=== PATIENT | female | born 1965 | race Caucasian/White ===

== ENCOUNTER 2018-07-19 17:44 | Emergency (ER) | payer OTHER ==
[2018-07-19] MEDS ORDERED: BUSP15TA69 PO (18:13)
[2018-07-19] MEDS ORDERED: FEXO1TAB63 PO (18:13)
[2018-07-19] MEDS ORDERED: ESTR-33 PO (18:13)
[2018-07-19] MEDS ORDERED: METF-450 PO (18:13)
--- NOTE | 2018-07-19 18:14 | ER Report ---
History and Physical Time Seen By MD: 18:12 Hx. of Stated Complaint: pt has extensive bowel hx, recently, had some n/vb and abd pain, was sent by her [facility] in [place] for a CT. Found to have inflammation and possible "early " obstruction. HPI/ROS CHIEF COMPLAINT: Abdominal pain HISTORY OF PRESENT ILLNESS: 53-year-old female with a history of numerous bowel surgeries, status post hysterectomy, status post appendectomy. 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 She underwent many surgeries as an . She subsequently underwent a total abdominal hysterectomy several years ago that lasted many hours since they had to take down a lot of adhesions. Patient now has been having some vague symptoms for 2-3 weeks. She gets severe abdominal cramping last night and presented to the clinic in [place]. She was sent in for evaluation with a CT of the abdomen and pelvis. The CT report shows gross enteritis of some terminal ileal loops. And possibly early small bowel obstruction. Patient on arrival here to the ER, has only mild abdominal discomfort. She had several episodes of vomiting last night. She notes that she generally tense cord constipation. Her last bowel movement was Wednesday, 2 days ago. REVIEW OF SYSTEMS: Respiratory: No cough, no dyspnea. Cardiovascular: No chest pain, no palpitations. Gastrointestinal: As above Musculoskeletal: No back pain. Allergies: Uncoded Allergies: surgiical glue (Adverse Reaction, Intermediate, 07/19/18) Home Meds Active Scripts Hydrocodone Bit/Acetaminophen (HYDROCODON-ACETAMINOPHEN 5-325) 1 Each Tablet, 1 EACH PO Q4-6H PRN for PAIN, #12 TAKE ONE TABLET BY MOUTH EVERY 4-6 HOURS NEEDED FOR PAIN Prov:NOÉ FRAZIER DO 07/19/18 Ondansetron 4 Mg Odt (ONDANSETRON 4 MG ODT) 4 Mg Tab.rapdis, 4 MG PO Q6H PRN for NAUSEA/VOMITING, #10 TAB Prov:NOÉ FRAZIER DO 07/19/18 Metronidazole (FLAGYL) 500 Mg Tablet, 500 MG PO BID for infection, #14 TAB Prov:NOÉ FRAZIER DO 07/19/18 Ciprofloxacin Hcl 500 Mg Tab (CIPRO 500 MG TAB) 500 Mg Tablet, 500 MG PO BID for infection, #14 Prov:NOÉ FRAZIER 07/19/18 Reported Medications Fexofenadine Hcl/Pseudoephedr (NAVNEET-D 24 HOUR TABLET) 1 Each Tabsr, 1 TAB PO QDAY 07/19/18 Estradiol (ESTRADIOL) 1 Mg Tablet, 1 MG PO 07/19/18 Metformin Hcl (METFORMIN HCL) 500 Mg Tablet, 1 TAB PO BID, TAB 07/19/18 Buspirone Hcl (BUSPIRONE HCL) 15 Mg Tablet, 15 MG PO BID, #10 TAB 07/19/18 Reviewed Nurses Notes: Yes Old Medical Records Reviewed: Yes Hx Substance Use Disorder: No Hx Alcohol Use: Yes (occ) Constitutional Vital Sign - Last 24 Hours 07/19/18 07/19/18 07/19/18 07/19/18 17:51 17:52 18:00 18:14 Temp 97.4 Pulse 67 63 Resp 20 B/P (MAP) 116/81 (93) 116/81 120/86 (97) Pulse Ox 96 93 O2 Delivery Room Air 07/19/18 07/19/18 07/19/18 07/19/18 18:29 18:44 18:59 19:00 Pulse 65 62 65 B/P (MAP) 121/81 (94) Pulse Ox 95 96 94 07/19/18 07/19/18 07/19/18 19:14 19:29 19:30 Pulse 68 64 B/P (MAP) 105/88 (94) Pulse Ox 86 96 Physical Exam Vital signs stable, afebrile General Appearance: The patient is alert, has no immediate need for airway protection and no current signs of toxicity. No acute distress, skin warm, dry, pink Eyes: Pupils equal and round no injection. Respiratory: Chest is non tender, lungs are clear to auscultation. Cardiac: regular rate and rhythm Gastrointestinal: Abdomen is soft, mild distention, mild diffuse tenderness, no masses, bowel sounds normal. Musculoskeletal: Neck: Neck is supple and non tender. Extremities have full range of motion and are non tender. Skin: No rashes or lesions. DIFFERENTIAL DIAGNOSIS: After history and physical exam differential diagnosis was considered for abdominal pain including but not limited to appendicitis, cholecystitis, bowel obstruction, enteritis gastritis and urinary tract infection. Medical Decision Making Data Points Result Diagram: 07/19/18 1834 07/19/18 1834 Laboratory Hematology Test 07/19/18 17:55 07/19/18 18:34 Urine Color Yellow Urine Clarity Clear Urine pH 5.0 pH (4.8-9.5) Urine Specific Downey 1.057 Urine Protein Negative mg/dL (NEGATIVE) Urine Glucose (UA) Negative mg/dL (NEGATIVE) Urine Ketones Negative mg/dL (NEGATIVE) Urine Blood Negative (NEGATIVE) Urine Nitrite Negative (NEGATIVE) Urine Bilirubin Negative (NEGATIVE) Urine Urobilinogen Negative mg/dL (0.2-1.9) Urine Leukocyte Esterase Negative (NEGATIVE) Urine RBC 1 /HPF (0-2/HPF) Urine WBC <1 /HPF (0-5/HPF) Urine Squamous Epithelial Cells Many /LPF (</=FEW) Urine Bacteria Negative /HPF (NONE-FEW) Urine Mucus None /HPF (NONE-FEW) Red Blood Count 4.64 M/uL (4.17-5.56) Mean Corpuscular Volume 91.9 fL (80.0-96.0) Mean Corpuscular Hemoglobin 30.7 pg (26.0-33.0) Mean Corpuscular Hemoglobin Concent 33.4 g/dL (32.0-36.0) Red Cell Distribution Width 14.0 % (11.5-14.5) Mean Platelet Volume 8.9 fL (7.2-11.1) Neutrophils (%) (Auto) 68.4 % (39.4-72.5) Lymphocytes (%) (Auto) 22.3 % (17.6-49.6) Monocytes (%) (Auto) 5.9 % (4.1-12.4) Eosinophils (%) (Auto) 2.7 % (0.4-6.7) Basophils (%) (Auto) 0.7 % (0.3-1.4) Nucleated RBC Relative Count (auto) 0.0 /100WBC Neutrophils # (Auto) 5.4 K/uL (2.0-7.4) Lymphocytes # (Auto) 1.8 K/uL (1.3-3.6) Monocytes # (Auto) 0.5 K/uL (0.3-1.0) Eosinophils # (Auto) 0.2 K/uL (0.0-0.5) Basophils # (Auto) 0.1 K/uL (0.0-0.1) Nucleated RBC Absolute Count (auto) 0.00 K/uL Sodium Level 139 mmol/L (137-145) Potassium Level 4.0 mmol/L (3.5-5.0) Chloride Level 104 mmol/L (98-107) Carbon Dioxide Level 27 mmol/L (22-31) Blood Urea Nitrogen 9 mg/dl (7-18) Creatinine 0.90 mg/dl (0.52-1.04) Glomerular Filtration Rate Calc > 60.0 Random Glucose 83 mg/dl (75-110) Lactate 1.4 mmol/L (0.7-2.1) Calcium Level 9.1 mg/dl (8.4-10.2) Total Bilirubin 0.4 mg/dl (0.2-1.3) Aspartate Amino Transf (AST/SGOT) 26 U/L (0-35) Alanine Aminotransferase (ALT/SGPT) 36 U/L (0-56) Alkaline Phosphatase 79 U/L (0-126) Total Protein 7.6 g/dl (6.3-8.2) Albumin 4.5 g/dl (3.5-5.0) Amylase Level 80 U/L (0-110) Lipase 48 U/L (23-300) Chemistry Test 07/19/18 17:55 07/19/18 18:34 Urine Color Yellow Urine Clarity Clear Urine pH 5.0 pH (4.8-9.5) Urine Specific Downey 1.057 Urine Protein Negative mg/dL (NEGATIVE) Urine Glucose (UA) Negative mg/dL (NEGATIVE) Urine Ketones Negative mg/dL (NEGATIVE) Urine Blood Negative (NEGATIVE) Urine Nitrite Negative (NEGATIVE) Urine Bilirubin Negative (NEGATIVE) Urine Urobilinogen Negative mg/dL (0.2-1.9) Urine Leukocyte Esterase Negative (NEGATIVE) Urine RBC 1 /HPF (0-2/HPF) Urine WBC <1 /HPF (0-5/HPF) Urine Squamous Epithelial Cells Many /LPF (</=FEW) Urine Bacteria Negative /HPF (NONE-FEW) Urine Mucus None /HPF (NONE-FEW) White Blood Count 7.9 k/uL (4.5-11.0) Red Blood Count 4.64 M/uL (4.17-5.56) Hemoglobin 14.2 g/dL (12.0-16.0) Hematocrit 42.6 % (34.0-47.0) Mean Corpuscular Volume 91.9 fL (80.0-96.0) Mean Corpuscular Hemoglobin 30.7 pg (26.0-33.0) Mean Corpuscular Hemoglobin Concent 33.4 g/dL (32.0-36.0) Red Cell Distribution Width 14.0 % (11.5-14.5) Platelet Count 299 K/uL (150-450) Mean Platelet Volume 8.9 fL (7.2-11.1) Neutrophils (%) (Auto) 68.4 % (39.4-72.5) Lymphocytes (%) (Auto) 22.3 % (17.6-49.6) Monocytes (%) (Auto) 5.9 % (4.1-12.4) Eosinophils (%) (Auto) 2.7 % (0.4-6.7) Basophils (%) (Auto) 0.7 % (0.3-1.4) Nucleated RBC Relative Count (auto) 0.0 /100WBC Neutrophils # (Auto) 5.4 K/uL (2.0-7.4) Lymphocytes # (Auto) 1.8 K/uL (1.3-3.6) Monocytes # (Auto) 0.5 K/uL (0.3-1.0) Eosinophils # (Auto) 0.2 K/uL (0.0-0.5) Basophils # (Auto) 0.1 K/uL (0.0-0.1) Nucleated RBC Absolute Count (auto) 0.00 K/uL Glomerular Filtration Rate Calc > 60.0 Lactate 1.4 mmol/L (0.7-2.1) Calcium Level 9.1 mg/dl (8.4-10.2) Total Bilirubin 0.4 mg/dl (0.2-1.3) Aspartate Amino Transf (AST/SGOT) 26 U/L (0-35) Alanine Aminotransferase (ALT/SGPT) 36 U/L (0-56) Alkaline Phosphatase 79 U/L (0-126) Total Protein 7.6 g/dl (6.3-8.2) Albumin 4.5 g/dl (3.5-5.0) Amylase Level 80 U/L (0-110) Lipase 48 U/L (23-300) Urinalysis Test 07/19/18 17:55 Urine Color Yellow Urine Clarity Clear Urine pH 5.0 pH (4.8-9.5) Urine Specific Downey 1.057 Urine Protein Negative mg/dL (NEGATIVE) Urine Glucose (UA) Negative mg/dL (NEGATIVE) Urine Ketones Negative mg/dL (NEGATIVE) Urine Blood Negative (NEGATIVE) Urine Nitrite Negative (NEGATIVE) Urine Bilirubin Negative (NEGATIVE) Urine Urobilinogen Negative mg/dL (0.2-1.9) Urine Leukocyte Esterase Negative (NEGATIVE) Urine RBC 1 /HPF (0-2/HPF) Urine WBC <1 /HPF (0-5/HPF) Urine Squamous Epithelial Cells Many /LPF (</=FEW) Urine Bacteria Negative /HPF (NONE-FEW) Urine Mucus None /HPF (NONE-FEW) EKG/Imaging Imaging Results: CT scan of the abdomen and pelvis without IV contrast was obtained. The results of the study are CT abdomen and pelvis without and with IV contrast Indication: Abdominal and pelvic pain. Comparison: None available. . Technique: Axial CT images were obtained through the abdomen and pelvis prior to and during injection of nonionic iodinated intravenous contrast. Reformatted coronal and sagittal images were also obtained. One of the following dose optimization techniques was utilized in the performance of this exam: Automated exposure control; adjustment of the mA and/or kV according to the patient's size; or use of an iterative reconstruction technique. Specific details can be referenced in the facility's radiology CT exam operational policy. Contrast: 75 ml of Isovue-370 IV contrast. Findings: Lower lung paris: Limited views lower lung field are unremarkable. Liver: No focal parenchymal abnormality of the liver. Biliary: Gallbladder appears unremarkable as well as the intra and extra hepatic biliary system. Pancreas: Normal appearance. Spleen: Normal appearance. Adrenal glands: Unremarkable. Kidneys / retroperitoneum: No evidence of nephrolithiasis or hydronephrosis. No focal abnormality. Bowel / peritoneum / mesenteries: The colon shows no focal normality. The appendix is not visualized. There is abnormal appearance to the mid ileum showing wall thickening, increased enhancement to the wall and mild prominence. There is mild dilatation of couple loops of proximal ileum. The jejunum and duodenum show more normal appearance. Terminal ileum appears more normal in its appearance. The stomach is unremarkable. There is some free fluid seen in the mesentery of the mid ileum without fluid collection, free air or other areas of inflammation. Lymph node assessment: No pathologic adenopathy identified. Pelvic structures: The uterus is not visualized may been surgically removed. The remaining pelvic structures visualized within normal limits. Vessels: No significant atherosclerotic calcifications seen throughout a nonaneurysmal abdominal aorta and branches. Musculoskeletal / Body wall: No acute or aggressive osseous abnormality. IMPRESSION: 1. Abnormal ileum mainly in the mid aspect showing wall thickening and increased enhancement with mild prominence of the proximal ileum. This is suggestive nonspecific enteritis likely infectious or inflammatory and less likely ischemic as the vessels within the abdomen all appear to be well opacified. This may be causing a early obstructive pattern. There is associated mesenteric fluid. No fluid collection or perforation. 2. The remainder of the exam is unremarkable. The study was read by the radiologist. I viewed the images myself on the PACS system. ED Course/Re-evaluation Clinical Indication for ER IV: Hydration, IV Access ED Course Patient was admitted to an examination room. H&P was done. The differential diagnoses was considered. Patient notes abdominal bloating pain and cramps last night with vomiting. She was sent in by her provider from [place] had a CAT scan of her abdomen and pelvis with and without contrast. It shows enteritis. And possibly an early small bowel obstruction. She has a history of multiple abdominal surgeries. Diagnostic evaluation is sent off. Patient's treated with IV fluid hydration, Zofran and Toradol. Her diagnostic studies are unremarkable. Her urine shows an increased specific gravity consistent with IV contrast. I had a prolonged discussion with the patient regarding options of going home or being admitted with a early small bowel obstruction. Patient would prefer to go home. She'll be covered with Cipro and Flagyl for enteritis. She'll be given Zofran and Lortab for symptom management. She is advised a clear liquid diet for 2-3 days. Advance into the brat diet. Patient advised a low threshold return for any worsening Decision to Disposition Date: Jul 19, 2018 Decision to Disposition Time: 19:09 Depart Departure Latest Vital Signs Vital Signs Date Time Temp Pulse Resp B/P (MAP) Pulse Ox O2 Delivery O2 Flow Rate FiO2 07/19/18 19:30 105/88 (94) 07/19/18 19:29 64 96 07/19/18 17:52 97.4 20 Room Air Impression: Primary Impression: Abdominal cramps Additional Impression: Enteritis Condition: Improved Disposition: HOME OR SELF-CARE New Scripts Hydrocodone Bit/Acetaminophen (HYDROCODON-ACETAMINOPHEN 5-325) 1 Each Tablet 1 EACH PO Q4-6H PRN for PAIN, #12 TAKE ONE TABLET BY MOUTH EVERY 4-6 HOURS NEEDED FOR PAIN Prov: NOÉ FRAZIER DO 07/19/18 Ondansetron 4 Mg Odt (ONDANSETRON 4 MG ODT) 4 Mg Tab.rapdis 4 MG PO Q6H PRN for NAUSEA/VOMITING, #10 TAB Prov: NOÉ FRAZIER DO 07/19/18 Metronidazole (FLAGYL) 500 Mg Tablet 500 MG PO BID for infection, #14 TAB Prov: NOÉ FRAZIER DO 07/19/18 Ciprofloxacin Hcl 500 Mg Tab (CIPRO 500 MG TAB) 500 Mg Tablet 500 MG PO BID for infection, #14 Prov: NOÉ FRAZIER DO 07/19/18 Patient Instructions: Enteritis (ED) Additional Instructions: Follow clear liquid diet for 48 hours, then advance to the Maggie diet as tolerated Avoid fatty food, greasy food, vegetables and dairy for at least 3 days Take both antibiotics twice daily until gone Use medication to control your symptoms Return to the ER for any worsening Problem Qualifiers NOÉ FRAZIER DO Jul 19, 2018 18:14
[2018-07-19] MEDS ORDERED: NS(*) 0.9% 1000 ML BAG 1,000 ML IV ONE (18:15)
[2018-07-19 18:41] LABS: PLATELET COUNT, AUTOMATED 299 K/uL (150-450)
[2018-07-19] MEDS ORDERED: ACET/HYDROC 5/325MG TH ER ONLY 2 TAB/BOTTLE PO ONE (19:10)
[2018-07-19] MEDS ORDERED: KETOROLAC 30 MG/ML VIAL IVP ONE (19:10)
[2018-07-19] MEDS ORDERED: ONDANSETRON 4 MG/2 ML VIAL IVP ONE (19:10)
[2018-07-19] MEDS ORDERED: CIPROFLOXACIN 500 MG TAB PO ONE (19:10)
[2018-07-19] MEDS ORDERED: METRONIDAZOLE 500 MG TABLET PO ONE (19:10)
[2018-07-19] MEDS ORDERED: ONDANSETRON 4 MG ODT TH SL ONE (19:10)
[2018-07-19] MEDS ORDERED: LOR5/325 PO (19:13)
[2018-07-19] MEDS ORDERED: METR-1 PO (19:13)
[2018-07-19] MEDS ORDERED: CIPR-344 PO (19:13)
[2018-07-19] MEDS ORDERED: ONDA4TAB9 PO (19:13)
[2018-07-19 19:30] VITALS: BP 105/88
== END 2018-07-19 19:40 | disposition home or self-care (01) ==
LOC: ER 18:16
DX: K52.9 Noninfective gastroenteritis and colitis, unspecified (principal); R10.9 Unspecified abdominal pain
CPT/HCPCS: 36415; 81001; 82150; 83605; 83690; 85025; 96361; 96374; 96375; 99284; J1885; J2405; J7030; S0119; 82040; 82247; 82310; 82374; 82435; 82565; 82947; 84075; 84132; 84155; 84295; 84450; 84460; 84520

== ENCOUNTER → 2018-07-19 | Outpatient (CLI) | payer OTHER ==
[~2018-07-19] MED LIST: BUSP15TA69 PO; CIPR-344 PO; ESTR-33 PO; FEXO1TAB63 PO; IOPAMIDOL 76% 150 ML INFUS BTL 150 ML ONE; LOR5/325 PO; METF-450 PO; METR-1 PO; ONDA4TAB9 PO
--- NOTE | 2018-07-19 16:53 | RADIOLOGY IMAGING REPORT ---
[place] [facility] [place] NAME: Malick Jefferson : 1965 MR: [id number] V: [id number] EXAM DATE: ORDERING PHYSICIAN: TAMARA HERNANDES TECHNOLOGIST: [place] [facility] [place] Malick [place] : 1965 Visit/Account:[id number] Date of Sevice: 07/19/2018 CT abdomen and pelvis without and with IV contrast Indication: Abdominal and pelvic pain. Comparison: None available. . Technique: Axial CT images were obtained through the abdomen and pelvis prior to and during injecti on of nonionic iodinated intravenous contrast. Reformatted coronal and sagittal images were also obta ined. One of the following dose optimization techniques was utilized in the performance of this exam: Autom ated exposure control; adjustment of the mA and/or kV according to the patient's size; or use of an i terative reconstruction technique. Specific details can be referenced in the facility's radiology C T exam operational policy. Contrast: 75 ml of Isovue-370 IV contrast. Findings: Lower lung paris: Limited views lower lung field are unremarkable. Liver: No focal parenchymal abnormality of the liver. Biliary: Gallbladder appears unremarkable as well as the intra and extra hepatic biliary system. Pancreas: Normal appearance. Spleen: Normal appearance. Adrenal glands: Unremarkable. Kidneys / retroperitoneum: No evidence of nephrolithiasis or hydronephrosis. No focal abnormality. Bowel / peritoneum / mesenteries: The colon shows no focal normality. The appendix is not visualized. There is abnormal appearance to the mid ileum showing wall thickening, increased enhancement to the wall and mild prominence. There is mild dilatation of couple loops of proximal ileum. The jejunum and duodenum show more normal appearance. Terminal ileum appears more normal in its appearance. The stom ach is unremarkable. There is some free fluid seen in the mesentery of the mid ileum without fluid collection, free air or other areas of inflammation. Lymph node assessment: No pathologic adenopathy identified. Pelvic structures: The uterus is not visualized may been surgically removed. The remaining pelvic structures visualized within normal limits. Vessels: No significant atherosclerotic calcifications seen throughout a nonaneurysmal abdominal aort a and branches. Musculoskeletal / Body wall: No acute or aggressive osseous abnormality. IMPRESSION: 1. Abnormal ileum mainly in the mid aspect showing wall thickening and increased enhancement with mil d prominence of the proximal ileum. This is suggestive nonspecific enteritis likely infectious or inf lammatory and less likely ischemic as the vessels within the abdomen all appear to be well opacified. This may be causing a early obstructive pattern. There is associated mesenteric fluid. No fluid david ection or perforation. 2. The remainder of the exam is unremarkable. I called report to TAMARA HERNANDES at 07/19/2018 4:47 PM. Report Dictated By: Saeed Bejarano at 07/19/2018 4:33 PM Report E-Signed By: Saeed Bejarano at 07/19/2018 4:50 PM WSN:[id number]
== END ==
LOC: LAB 14:35
PROVIDERS: ATTEND Nurse Practitioner Family
DX: R93.3 Abnormal findings on diagnostic imaging of other parts of digestive tract (principal); R10.9 Unspecified abdominal pain
CPT/HCPCS: 36415; 74178; 82565; Q9967

== ENCOUNTER 2018-08-10 16:52 | Inpatient (IN) | payer OTHER ==
[~2018-08-10] VITALS: Ht 147.3 cm; Wt 75.3 kg
[~2018-08-10 16:52] MED LIST changes: -IOPAMIDOL 76% 150 ML INFUS BTL 150 ML ONE
[2018-08-10] MEDS ORDERED: NS(*) 0.9% 1000 ML BAG 1,000 ML IV ONE (17:00)
[2018-08-10] MEDS ORDERED: fentaNYL CITR 100 MCG/2 ML AMP IVP ONE (17:00)
[2018-08-10] MEDS ORDERED: ONDANSETRON 4 MG/2 ML VIAL IVP ONE (17:00)
--- NOTE | 2018-08-10 17:10 | ER Report ---
History and Physical Time Seen By MD: 17:10 HPI/ROS CHIEF COMPLAINT: Abdominal pain HISTORY OF PRESENT ILLNESS: 53-year-old female patient presents to emergency room with complaint of abdominal pain. Patient states the pain started out of the blue at 12:30 this afternoon. She states that she has not been able to eat anything since then. She states she was not very hungry last night and didn't eat. She states she does live by herself and typically does not cook but one meal a day. She states that today she had a coffee and a burrito from a gas station. She states that she felt fine until 12:30. She states she had not vomited until she started traveling to [place]. She states that she vomited in route and then vomited once when she got here. She states that her last bowel movement was on Wednesday. Patient does have a history of abdominal surgery with a hysterectomy and mesh placement. Patient was seen here approximately 3 weeks ago, at that time had a CT scan done which showed inflammation of the small intestine. She states that at that time they felt that it was possibly a small bowel obstruction but was given the option to try oral medication at home. She did that and felt that she is not able to keep anything down. She ended going to the hospital in [place] when she was there visiting family. At that time she was admitted for kidney failure secondary to dehydration. They rehydrated her and she felt significant better. She states she's been discharged for approximately one week. REVIEW OF SYSTEMS: Respiratory: No cough, no dyspnea. Cardiovascular: No chest pain, no palpitations. Gastrointestinal: As noted above Musculoskeletal: No back pain. Allergies: Uncoded Allergies: surgiical glue (Adverse Reaction, Intermediate, 07/19/18) Home Meds Active Scripts Hydrocodone Bit/Acetaminophen (HYDROCODON-ACETAMINOPHEN 5-325) 1 Each Tablet, 1 EACH PO Q4-6H PRN for PAIN, #12 TAKE ONE TABLET BY MOUTH EVERY 4-6 HOURS NEEDED FOR PAIN Prov:NOÉ FRAZIER DO 07/19/18 Ondansetron 4 Mg Odt (ONDANSETRON 4 MG ODT) 4 Mg Tab.rapdis, 4 MG PO Q6H PRN for NAUSEA/VOMITING, #10 TAB Prov:NOÉ FRAZIER DO 07/19/18 Metronidazole (FLAGYL) 500 Mg Tablet, 500 MG PO BID for infection, #14 TAB Prov:NOÉ FRAZIER DO 07/19/18 Ciprofloxacin Hcl 500 Mg Tab (CIPRO 500 MG TAB) 500 Mg Tablet, 500 MG PO BID for infection, #14 Prov:NOÉ FRAZIER DO 07/19/18 Reported Medications Fexofenadine Hcl/Pseudoephedr (NAVNETE-D 24 HOUR TABLET) 1 Each Tabsr, 1 TAB PO QDAY 07/19/18 Estradiol (ESTRADIOL) 1 Mg Tablet, 1 MG PO 07/19/18 Metformin Hcl (METFORMIN HCL) 500 Mg Tablet, 1 TAB PO BID, TAB 07/19/18 Buspirone Hcl (BUSPIRONE HCL) 15 Mg Tablet, 15 MG PO BID, #10 TAB 07/19/18 Past Medical/Surgical History Patient states that she has a past medical history of GI issues, occasional alcohol use. Patient has a surgical history of appendectomy, hysterectomy and mesh placement. Reviewed Nurses Notes: Yes Hx Substance Use Disorder: No Hx Alcohol Use: Yes (occ) Constitutional Vital Sign - Last 24 Hours 08/10/18 08/10/18 08/10/18 08/10/18 17:11 17:12 17:22 17:52 Pulse 85 91 68 Resp 20 B/P (MAP) 126/96 (106) 126/96 Pulse Ox 94 90 97 O2 Delivery Room Air 08/10/18 08/10/18 08/10/18 08/10/18 17:57 18:12 18:43 18:57 Pulse 74 76 65 B/P (MAP) 118/72 (87) Pulse Ox 97 99 99 08/10/18 08/10/18 19:12 19:27 Pulse 83 79 Pulse Ox 99 94 Physical Exam General Appearance: The patient is alert, has no immediate need for airway protection and no current signs of toxicity. Respiratory: Chest is non tender, lungs are clear to auscultation. Cardiac: regular rate and rhythm Gastrointestinal: Abdomen is soft and diffusely tender, no masses, bowel sounds are hypoactive. Musculoskeletal: Neck: Neck is supple and non tender. Extremities have full range of motion and are non tender. Skin: No rashes or lesions. DIFFERENTIAL DIAGNOSIS: After history and physical exam differential diagnosis was considered for ischemic bowel, perforated bowel, small bowel obstruction. Medical Decision Making Data Points Result Diagram: 08/10/18 1726 08/10/18 4654 Laboratory Hematology Test 08/10/18 17:26 08/10/18 18:42 Red Blood Count 4.61 M/uL (4.17-5.56) Mean Corpuscular Volume 91.8 fL (80.0-96.0) Mean Corpuscular Hemoglobin 30.9 pg (26.0-33.0) Mean Corpuscular Hemoglobin Concent 33.7 g/dL (32.0-36.0) Red Cell Distribution Width 14.1 % (11.5-14.5) Mean Platelet Volume 8.9 fL (7.2-11.1) Neutrophils (%) (Auto) 80.0 % (39.4-72.5) Lymphocytes (%) (Auto) 11.0 % (17.6-49.6) Monocytes (%) (Auto) 6.2 % (4.1-12.4) Eosinophils (%) (Auto) 2.3 % (0.4-6.7) Basophils (%) (Auto) 0.5 % (0.3-1.4) Nucleated RBC Relative Count (auto) 0.0 /100WBC Neutrophils # (Auto) 10.4 K/uL (2.0-7.4) Lymphocytes # (Auto) 1.4 K/uL (1.3-3.6) Monocytes # (Auto) 0.8 K/uL (0.3-1.0) Eosinophils # (Auto) 0.3 K/uL (0.0-0.5) Basophils # (Auto) 0.1 K/uL (0.0-0.1) Nucleated RBC Absolute Count (auto) 0.00 K/uL Erythrocyte Sedimentation Rate 28 mm/HOUR (0-30) Sodium Level 139 mmol/L (137-145) Potassium Level 4.0 mmol/L (3.5-5.0) Chloride Level 103 mmol/L (98-107) Carbon Dioxide Level 24 mmol/L (22-31) Blood Urea Nitrogen 17 mg/dl (7-18) Creatinine 0.80 mg/dl (0.52-1.04) Glomerular Filtration Rate Calc > 60.0 Random Glucose 113 mg/dl (75-110) Calcium Level 10.0 mg/dl (8.4-10.2) Total Bilirubin 0.2 mg/dl (0.2-1.3) Aspartate Amino Transf (AST/SGOT) 37 U/L (0-35) Alanine Aminotransferase (ALT/SGPT) 34 U/L (0-56) Alkaline Phosphatase 90 U/L (0-126) C-Reactive Protein 0.6 mg/dl (<1.0) Total Protein 8.4 g/dl (6.3-8.2) Albumin 4.9 g/dl (3.5-5.0) Amylase Level 85 U/L (0-110) Lipase 56 U/L (23-300) Urine Color Yellow Urine Clarity Clear Urine pH 5.0 pH (4.8-9.5) Urine Specific Nemo 1.028 Urine Protein Negative mg/dL (NEGATIVE) Urine Glucose (UA) Negative mg/dL (NEGATIVE) Urine Ketones Negative mg/dL (NEGATIVE) Urine Blood Negative (NEGATIVE) Urine Nitrite Negative (NEGATIVE) Urine Bilirubin Negative (NEGATIVE) Urine Urobilinogen Negative mg/dL (0.2-1.9) Urine Leukocyte Esterase Negative (NEGATIVE) Urine RBC 1 /HPF (0-2/HPF) Urine WBC 1 /HPF (0-5/HPF) Urine Squamous Epithelial Cells Few /LPF (</=FEW) Urine Bacteria Negative /HPF (NONE-FEW) Urine Mucus None /HPF (NONE-FEW) Chemistry Test 08/10/18 17:26 08/10/18 18:42 White Blood Count 13.0 k/uL (4.5-11.0) Red Blood Count 4.61 M/uL (4.17-5.56) Hemoglobin 14.2 g/dL (12.0-16.0) Hematocrit 42.3 % (34.0-47.0) Mean Corpuscular Volume 91.8 fL (80.0-96.0) Mean Corpuscular Hemoglobin 30.9 pg (26.0-33.0) Mean Corpuscular Hemoglobin Concent 33.7 g/dL (32.0-36.0) Red Cell Distribution Width 14.1 % (11.5-14.5) Platelet Count 361 K/uL (150-450) Mean Platelet Volume 8.9 fL (7.2-11.1) Neutrophils (%) (Auto) 80.0 % (39.4-72.5) Lymphocytes (%) (Auto) 11.0 % (17.6-49.6) Monocytes (%) (Auto) 6.2 % (4.1-12.4) Eosinophils (%) (Auto) 2.3 % (0.4-6.7) Basophils (%) (Auto) 0.5 % (0.3-1.4) Nucleated RBC Relative Count (auto) 0.0 /100WBC Neutrophils # (Auto) 10.4 K/uL (2.0-7.4) Lymphocytes # (Auto) 1.4 K/uL (1.3-3.6) Monocytes # (Auto) 0.8 K/uL (0.3-1.0) Eosinophils # (Auto) 0.3 K/uL (0.0-0.5) Basophils # (Auto) 0.1 K/uL (0.0-0.1) Nucleated RBC Absolute Count (auto) 0.00 K/uL Erythrocyte Sedimentation Rate 28 mm/HOUR (0-30) Glomerular Filtration Rate Calc > 60.0 Calcium Level 10.0 mg/dl (8.4-10.2) Total Bilirubin 0.2 mg/dl (0.2-1.3) Aspartate Amino Transf (AST/SGOT) 37 U/L (0-35) Alanine Aminotransferase (ALT/SGPT) 34 U/L (0-56) Alkaline Phosphatase 90 U/L (0-126) C-Reactive Protein 0.6 mg/dl (<1.0) Total Protein 8.4 g/dl (6.3-8.2) Albumin 4.9 g/dl (3.5-5.0) Amylase Level 85 U/L (0-110) Lipase 56 U/L (23-300) Urine Color Yellow Urine Clarity Clear Urine pH 5.0 pH (4.8-9.5) Urine Specific Nemo 1.028 Urine Protein Negative mg/dL (NEGATIVE) Urine Glucose (UA) Negative mg/dL (NEGATIVE) Urine Ketones Negative mg/dL (NEGATIVE) Urine Blood Negative (NEGATIVE) Urine Nitrite Negative (NEGATIVE) Urine Bilirubin Negative (NEGATIVE) Urine Urobilinogen Negative mg/dL (0.2-1.9) Urine Leukocyte Esterase Negative (NEGATIVE) Urine RBC 1 /HPF (0-2/HPF) Urine WBC 1 /HPF (0-5/HPF) Urine Squamous Epithelial Cells Few /LPF (</=FEW) Urine Bacteria Negative /HPF (NONE-FEW) Urine Mucus None /HPF (NONE-FEW) Urinalysis Test 08/10/18 18:42 Urine Color Yellow Urine Clarity Clear Urine pH 5.0 pH (4.8-9.5) Urine Specific Nemo 1.028 Urine Protein Negative mg/dL (NEGATIVE) Urine Glucose (UA) Negative mg/dL (NEGATIVE) Urine Ketones Negative mg/dL (NEGATIVE) Urine Blood Negative (NEGATIVE) Urine Nitrite Negative (NEGATIVE) Urine Bilirubin Negative (NEGATIVE) Urine Urobilinogen Negative mg/dL (0.2-1.9) Urine Leukocyte Esterase Negative (NEGATIVE) Urine RBC 1 /HPF (0-2/HPF) Urine WBC 1 /HPF (0-5/HPF) Urine Squamous Epithelial Cells Few /LPF (</=FEW) Urine Bacteria Negative /HPF (NONE-FEW) Urine Mucus None /HPF (NONE-FEW) EKG/Imaging Imaging ADDENDUM #1 ADDENDUM: These findings of possible small bowel obstruction were discussed with CHARLETTE GIMENEZ at 08/10/2018 7:06 PM. Report Dictated By: Vince Wheeler MD at 08/10/2018 7:05 PM Report E-Signed By: Vince Wheeler MD at 08/10/2018 7:06 PM ORIGINAL REPORT EXAMINATION: CT abdomen with IV contrast CT pelvis with IV contrast HISTORY: Abdominal pain. COMPARISON: 07/19/2018. TECHNIQUE: Axial images were taken through the abdomen and pelvis with intravenous contrast. Sagittal and coronal reformatted images are also submitted. CONTRAST: 75 mL of IV Isovue-370 One of the following dose optimization techniques was utilized in the performance of this exam: Automated exposure control; adjustment of the mA and/or kV according to the patient's size; or use of an iterative reconstruction technique. Specific details can be referenced in the facility's radiology CT exam operational policy. FINDINGS: Liver/biliary: Negative. Pancreas: Negative. Spleen: Negative. Adrenal glands: Negative. Kidneys: Subcentimeter hypoattenuating focus in the right kidney, probably a cyst. Pelvic structures: Status post hysterectomy. Bowel: There is dilation of the mid small bowel with segments focally dilated up to 4.2 cm and 5.1 cm. The distal small bowel and proximal small bowel are nondilated. No obvious focal bowel wall thickening. The appendix is not identified. There are no pericecal inflammatory changes. Peritoneum/retroperitoneum/mesenteries: No intraperitoneal free air or free fluid. Vessels: Negative. Musculoskeletal/body wall: Mild multilevel disc degenerative changes in the lumbar spine. Lymph node assessment: Negative. Lower chest: Negative. IMPRESSION: Dilated segments of the mid small bowel. This is suspicious for a low-grade partial small bowel obstruction. Ileus would also be a possibility with other etiologies not excluded. Report Dictated By: Vince Wheeler MD at 08/10/2018 6:46 PM Report E-Signed By: Vince Wheeler MD at 08/10/2018 7:01 PM ED Course/Re-evaluation ED Course Patient was admitted to an exam room, history and physical were obtained. Differ ential diagnoses were considered. On examination lungs are clear, heart is regular, abdomen is soft and diffusely tender. A CBC, CMP, amylase, lipase, CRP, ESR were done. Lab results were unremarkable except the patient did have an elevated white count 13,000 with a left shift. Creatinine was 0.8 and BUN was 17. CT scan of the abdomen and pelvis was done which showed dilation of the small bowel starting in the mid small intestine. Hepatic to be consistent with a small bowel obstruction, ileus or partial obstruction. I did discuss with the radiologist that I felt that he'll patient had significant amount of stuff in the stomach with some being quite dilated that this appeared to me to be more of a small bowel obstruction. I discussed the case with Dr. Samuel, general surgeon, who agreed to accept the patient for admission with diagnosis small bowel obstruction and recommended a NG tube placement. The NG tube was placed and patient had significant improvement in her pain. I discussed the plan with the patient and her daughter and they verbalized understanding and agreement with plan. Decision to Disposition Date: August 10, 2018 Decision to Disposition Time: 19:34 Depart Departure Latest Vital Signs Vital Signs Date Time Temp Pulse Resp B/P (MAP) Pulse Ox O2 Delivery O2 Flow Rate FiO2 08/10/18 19:27 79 94 08/10/18 18:43 118/72 (87) 08/10/18 17:12 20 Room Air Impression: Primary Impression: SBO (small bowel obstruction) Condition: Condition Unchanged Disposition: Admitted from ER CHARLETTE GIMENEZ August 10, 2018 17:10
[2018-08-10] MEDS ORDERED: HYDROMORPHONE HCL 1 MG/ML SYRINGE IVP ONE (17:25)
[2018-08-10 17:41] LABS: PLATELET COUNT, AUTOMATED 361 K/uL (150-450)
[2018-08-10] MEDS ORDERED: IOPAMIDOL 76% 150 ML INFUS BTL 150 ML ONE (18:18)
--- NOTE | 2018-08-10 19:05 | RADIOLOGY IMAGING REPORT ---
[place] [facility] [place] NAME: Malick Jefferson : 1965 MR: [id number] V: [id number] EXAM DATE: ORDERING PHYSICIAN: CHARLETTE GIMENEZ TECHNOLOGIST: Location: [facility] [place] Patient: Malick Jefferson : 1965 Visit/Account:[id number] Date of Sevice: 08/10/2018 ADDENDUM #1 ADDENDUM: These findings of possible small bowel obstruction were discussed with CHARLETTE GIMENEZ at 08/10/2018 7:06 P M. Report Dictated By: Vince Wheeler MD at 08/10/2018 7:05 PM Report E-Signed By: Vince Wheeler MD at 08/10/2018 7:06 PM ORIGINAL REPORT EXAMINATION: CT abdomen with IV contrast CT pelvis with IV contrast HISTORY: Abdominal pain. COMPARISON: 07/19/2018. TECHNIQUE: Axial images were taken through the abdomen and pelvis with intravenous contrast. Sagitt al and coronal reformatted images are also submitted. CONTRAST: 75 mL of IV Isovue-370 One of the following dose optimization techniques was utilized in the performance of this exam: Autom ated exposure control; adjustment of the mA and/or kV according to the patient's size; or use of an i terative reconstruction technique. Specific details can be referenced in the facility's radiology C T exam operational policy. FINDINGS: Liver/biliary: Negative. Pancreas: Negative. Spleen: Negative. Adrenal glands: Negative. Kidneys: Subcentimeter hypoattenuating focus in the right kidney, probably a cyst. Pelvic structures: Status post hysterectomy. Bowel: There is dilation of the mid small bowel with segments focally dilated up to 4.2 cm and 5.1 cm . The distal small bowel and proximal small bowel are nondilated. No obvious focal bowel wall thicken ing. The appendix is not identified. There are no pericecal inflammatory changes. Peritoneum/retroperitoneum/mesenteries: No intraperitoneal free air or free fluid. Vessels: Negative. Musculoskeletal/body wall: Mild multilevel disc degenerative changes in the lumbar spine. Lymph node assessment: Negative. Lower chest: Negative. IMPRESSION: Dilated segments of the mid small bowel. This is suspicious for a low-grade partial small bowel obstr uction. Ileus would also be a possibility with other etiologies not excluded. Report Dictated By: Vince Wheeler MD at 08/10/2018 6:46 PM Report E-Signed By: Vince Wheeler MD at 08/10/2018 7:01 PM WSN:[id number]
[2018-08-10] MEDS ORDERED: HYDROmorphone HCL 2 MG/ML SDV IVP PRN (19:15)
[2018-08-10] MEDS ORDERED: FLUSH 10 ML SYR IVP PRN (19:15)
[2018-08-10] MEDS ORDERED: ONDANSETRON 4 MG/2 ML VIAL IVP PRN (19:15)
[2018-08-10] MEDS ORDERED: NALOXONE HCL 0.4 MG/ML VIAL IVP PRN (19:15)
[2018-08-10] MEDS ORDERED: LIDOCAINE 2% VISC SLN 15ML UDC MM ONE (19:25)
[2018-08-10 20:12] VITALS: BP 127/89
[2018-08-10] MEDS: NS(*) 0.9% 1000 ML BAG 1,000 ML IV PRN (20:53)
--- NOTE | 2018-08-10 21:00 | RADIOLOGY IMAGING REPORT ---
FACILITY: [facility] - [place] PATIENT NAME: Malick Jefferson : 1965 MR: [id number] V: [id number] EXAM DATE: ORDERING PHYSICIAN: INES GOMEZ TECHNOLOGIST: Location: [facility] - [place] Patient: Malick Jefferson : 1965 Visit/Account:[id number] Date of Sevice: 08/10/2018 INDICATION: Evaluate NG tube position. DATE: 08/10/2018 8:54 PM. TECHNIQUE: CHEST SINGLE AP, KUB SINGLE VIEW ABDOMEN COMPARISON: CT abdomen and pelvis of the same day FINDINGS: The lungs are clear. The esophagogastric tube tip is in the downstream esophagus near the GE junction . Moderate volume of stool in the right colon. A few small bowel loops in the left hemiabdomen are mi ldly prominent. There is contrast in the bladder related to recent CT as well as in the renal calyces and proximal collecting systems. IMPRESSION: 1. The tube tip is near the GE junction. Report Dictated By: Jeremy Jensen MD at 08/10/2018 8:54 PM Report E-Signed By: Jeremy Jensen MD at 08/10/2018 8:57 PM WSN:[id number]
--- NOTE | 2018-08-10 21:01 | RADIOLOGY IMAGING REPORT ---
FACILITY: [facility] - [place] PATIENT NAME: Malick Jefferson : 1965 MR: [id number] V: [id number] EXAM DATE: ORDERING PHYSICIAN: INES GOMEZ TECHNOLOGIST: Location: [facility] [place] Patient: Malick Jefferson : 1965 Visit/Account:[id number] Date of Sevice: 08/10/2018 INDICATION: Evaluate NG tube position. DATE: 08/10/2018 8:54 PM. TECHNIQUE: CHEST SINGLE AP, KUB SINGLE VIEW ABDOMEN COMPARISON: CT abdomen and pelvis of the same day FINDINGS: The lungs are clear. The esophagogastric tube tip is in the downstream esophagus near the GE junction . Moderate volume of stool in the right colon. A few small bowel loops in the left hemiabdomen are mi ldly prominent. There is contrast in the bladder related to recent CT as well as in the renal calyces and proximal collecting systems. IMPRESSION: 1. The tube tip is near the GE junction. Report Dictated By: Jeremy Jensen MD at 08/10/2018 8:54 PM Report E-Signed By: Jeremy Jensen MD at 08/10/2018 8:57 PM WSN:[id number]
[2018-08-10] MEDS: ACETAMINOPHEN(*)1000 MG/100 ML 100 ML IVPB PRN (21:54)
[2018-08-10 23:01] VITALS: BP 117/79
[2018-08-11 02:59] VITALS: BP 129/93
[2018-08-11 05:53] LABS: PLATELET COUNT, AUTOMATED 271 K/uL (150-450)
[2018-08-11] MEDS: NS(*) 0.9% 1000 ML BAG 1,000 ML IV PRN (06:11)
--- NOTE | 2018-08-11 06:30 | RADIOLOGY IMAGING REPORT ---
FACILITY: [facility] PATIENT NAME: Malick Jefferson : 1965 MR: [id number] V: [id number] EXAM DATE: ORDERING PHYSICIAN: INES GOMEZ TECHNOLOGIST: Location: [facility] Patient: Malick Jefferson : 1965 Visit/Account:[id number] Date of Sevice: 08/11/2018 Abdomen: Indication: Possible obstruction. Technique: A single supine view was obtained. Comparison: 08/10/2018 Findings: The intestinal gas pattern is unremarkable. There is no evidence of obstruction or focal di latation. There is residual contrast in the bladder lumen, from the recent CT scan. No suspicious domonique cifications are identified. The skeletal structures appear unremarkable. IMPRESSION: No evidence of obstruction or focal dilatation. Report Dictated By: Leopoldo Dover MD at 08/11/2018 6:24 AM Report E-Signed By: Leopoldo Dover MD at 08/11/2018 6:26 AM WSN:[id number]
[2018-08-11 07:10] VITALS: BP 113/77
--- NOTE | 2018-08-11 07:16 | Gen Surgery History & Physical ---
History of Present Illness Chief Complaint Abdominal pain with N/V History of Present Illness 53yo female presents with abdominal pain with N/V. 1st occurred 3 weeks ago and she was seen in our ER where CT was performed and revealed enteritis with possible early SBO. Admission was recommended but she elected to go home and then, while visiting family in [place] a few days later she became very dehydrated and was admitted to their hospital for a couple of days and felt better after rehydration and was discharged. She was doing well until yesterday when she began having increased pain and nausea so she came in to our ER where CT was repeated and was c/w possible early SBO but no signs of enteritis at this time. She has an extensive abdominal surgical history including gastroschisis repair as , appy at 6yo, hysterectomy, and ventral hernia repair. She has been told to never have abdominal surgery if possible due to the extent of adhesions and difficulty of previous surgeries. History Problems: (1) Gastroschisis Status: Resolved (2) Hx of appendectomy Status: Chronic (3) History of hysterectomy for benign disease Status: Chronic (4) History of incisional hernia repair Status: Chronic Home Meds Active Scripts Hydrocodone Bit/Acetaminophen (HYDROCODON-ACETAMINOPHEN 5-325) 1 Each Tablet, 1 EACH PO Q4-6H PRN for PAIN, #12 TAKE ONE TABLET BY MOUTH EVERY 4-6 HOURS NEEDED FOR PAIN Prov:NOÉ FRAZIER DO 07/19/18 Ondansetron 4 Mg Odt (ONDANSETRON 4 MG ODT) 4 Mg Tab.rapdis, 4 MG PO Q6H PRN for NAUSEA/VOMITING, #10 TAB Prov:NOÉ FRAZIER DO 07/19/18 Metronidazole (FLAGYL) 500 Mg Tablet, 500 MG PO BID for infection, #14 TAB Prov:NOÉ FRAZIER DO 07/19/18 Ciprofloxacin Hcl 500 Mg Tab (CIPRO 500 MG TAB) 500 Mg Tablet, 500 MG PO BID for infection, #14 Prov:NOÉ FRAZIER DO 07/19/18 Reported Medications Fexofenadine Hcl/Pseudoephedr (NAVNEET-D 24 HOUR TABLET) 1 Each Tabsr, 1 TAB PO QDAY 07/19/18 Estradiol (ESTRADIOL) 1 Mg Tablet, 1 MG PO 07/19/18 Metformin Hcl (METFORMIN HCL) 500 Mg Tablet, 1 TAB PO BID, TAB 07/19/18 Buspirone Hcl (BUSPIRONE HCL) 15 Mg Tablet, 15 MG PO BID, #10 TAB 07/19/18 Allergies: Uncoded Allergies: surgiical glue (Adverse Reaction, Intermediate, 07/19/18) Patient History: FH: diabetes mellitus FATHER FH: hypertension FATHER Liver failure MOTHER Review of Systems All Systems Reviewed/Normal: Yes, Except as Noted Gastrointestinal: Nausea, Vomiting, Abdominal Pain Exam General Appearance: Alert, Awake, No Acute Distress, Afebrile Neuro: No Gross deficits Eyes: PERRLA GI: Other (Soft, diffuse TTP, no peritoneal signs, several well healed surgical scars.) Extremities: Warm, Perfused Psych: Alert & Oriented X3, Appropriate Mood & Affect Medical Decision Making Data Points Result Diagram: 08/11/1852108/11/18521 Assessment and Plan Problems: (1) SBO (small bowel obstruction) Status: Acute Assessment & Plan: 08/11/18: Patient has been admitted to start conservative management with NG tube decompression, bowel rest, IV fluids. She feels better this morning. Passed flatus earlier this morning. No appetite. Not much out of NG tube. Will get water-soluble SBFT today. Don't think surgical exploration will be necessary as CT findings mild/equivocal but may require surgical exploration depending on SBFT findings or failure to improve with conservative management. I have explained this plan to the patient in great detail and she seems to understand and she seems agreeable with this plan. Condition Stable. Time Spent: < 30 min Venous Thromboembolism VTE Risk Physician Assess for VTE Risk: Yes Patient's VTE Risk: Low VTE Diagnostic Test 2 Days Prior to Admit: No Antithrombotics Is Pt On Any Antithrombotics?: No INES GOMEZ MD August 11, 2018 07:16
[2018-08-11] MEDS: ACETAMINOPHEN(*)1000 MG/100 ML 100 ML IVPB PRN ×2 (07:23→16:38)
[2018-08-11] MEDS ORDERED: DIATRIZOATE MEGL/DIATRIZOA SOD 120 ML SOLN PO ONE (07:29)
[2018-08-11] MEDS ORDERED: PANTOPRAZOLE SOD 40 MG IV VIAL IVP SCH (09:00)
[2018-08-11] MEDS: ENOXAPARIN 40 MG/0.4ML SYR SC SCH (09:09)
--- NOTE | 2018-08-11 11:06 | Medical Nutrition Therapy ---
Nutrition Anthropometrics Height (Inches): 58.00 Height (Calculated Centimeters: 147.869667 Weight (Pounds): 166 Weight (Calculated Kilograms): 75.296 BMI: 34.7 Shane Nutrition Score: Probably Inadequate Shane Nutrition Risk Score: 19 Dietary Referral Nutrition Risk Factors: Nutrition Risk Comment: Physical Findings Physical Appearance: Obese BMI 30-39 Skin Appearance Skin Appearance: Edema Edema Location Modifier: Edema Location: Type of Edema: Degree of Edema: Gastrointestinal Symptoms GI Symtoms: Nausea, Vomiting Tube Present: NG Bowel Sounds: Recent Bowel Pattern: Stool Characteristics: Nutrition/Food History Decreased Appetite, N/V Nutritional Diagnosis Nutritional Risk Acuity 1: No Appetite, GI Obstruction Past Medical History: Appendectomy, bowel surgery, hysterectomy, gastroschisis, hernia repair Nutritional Acuity: 1-High Nutrition Diagnosis: Inadequate Food Intake Nutrition Etiology: Physiological Causes Nutrition Problem/Etiology/Sym: Inadequate food intake related physiological causes as evidence by SBO Energy Requirement: 1824 (HB: AF 1.3, 166lb) Protein Requirement: 75 (1g/kg x 75kg) Fluid Requirement: 1824 (1ml/domonique) Diet Type: NPO (Nothing by Mouth) Nutrition Monitoring & Eval RD Patient Assessment Time: [address] Assessment Type: RD Assessment Patient Nutrition Acuity: 1-High Follow Up Date: August 13, 2018 Nutritional Comment: 08/11 Pt dx with a SBO and was placed on NPO diet 08/10. Pt has had no appetite since 08/10. Will continue to monitor. AURORA IVAN August 11, 2018 11:06
[2018-08-11 11:13] VITALS: BP 115/89
--- NOTE | 2018-08-11 11:16 | RADIOLOGY IMAGING REPORT ---
FACILITY: [facility] PATIENT NAME: Malick Jefferson : 1965 MR: [id number] V: [id number] EXAM DATE: ORDERING PHYSICIAN: INES GOMEZ TECHNOLOGIST: Location: [facility] Patient: Malick Jefferson : 1965 Visit/Account:[id number] Date of Sevice: 08/11/2018 XR SMALL BOWEL SERIES HISTORY: SBO, WATER-SOLUBLE CONTRAST ONLY PLEASE SMALL BOWEL FOLLOW-THROUGH. FINDINGS: There were 360 mL of a water/Gastrografin mixture given through an NG tube. An immediate, 30 minute, one hour and a one hour 10 minute film obtained. There is rapid passage of the Gastrografin through a nondilated normal-appearing jejunal and ileal bowel loops. Gastrografin was seen within the right colon at one hour and 10 minutes. IMPRESSION: Negative small bowel follow-through for obstruction or acute small bowel pathology. 4 Films obtained Report Dictated By: Giacomo Dorsey MD at 08/11/2018 11:04 AM Report E-Signed By: Giacomo Dorsey MD at 08/11/2018 11:11 AM WSN:[email or web address]
[2018-08-11] MEDS ORDERED: OMEG-36 PO (16:09)
[2018-08-11] MEDS ORDERED: MULT1CAP59 PO (16:09)
[2018-08-11] MEDS ORDERED: FLUT16SP19 NS (16:09)
[2018-08-11] MEDS ORDERED: CHOL10005 PO (16:09)
[2018-08-11 16:35] VITALS: BP 126/93
[2018-08-11 19:11] VITALS: BP 122/81
[2018-08-11] MEDS: ACETAMINOPHEN 325 MG TAB PO PRN (22:51)
[2018-08-12 03:01] VITALS: BP 112/81
[2018-08-12] MEDS: ACETAMINOPHEN 325 MG TAB PO PRN ×2 (05:05→11:36)
[2018-08-12] MEDS ORDERED: IBUPROFEN 600 MG TAB PO PRN (07:35)
[2018-08-12 07:43] VITALS: BP 110/81
--- NOTE | 2018-08-12 07:46 | General Surgery Progress Note ---
Subjective Progress Notes Subjective Main complaint today is right shoulder pain. This started a week ago and is getting worse with swelling down her right arm to her fingers. No known trauma/injury. She thinks it occurred in her sleep. She took some of her own aleve and oxycodone/apap overnight. She got the oxy/apap from [facility] during her hospitalization there a few weeks ago. No abdominal pain. No GI complaints this morning. Physical Exam Vital Signs Date Time Temp Pulse Resp B/P (MAP) Pulse Ox O2 Delivery O2 Flow Rate FiO2 08/12/18 03:01 98.9 68 18 112/81 (91) 92 Room Air 08/11/18 07:10 2.0 Intake and Output 08/12/18 07:00 Intake Total 1550 ml Output Total 5 ml Balance 1545 ml Intake Oral 1550 ml Output Gastric Drainage Total 5 ml # Voids 5 # Bowel Movements 7 General Appearance: Alert, Awake, No Acute Distress, Afebrile GI: Soft and Non-Tender Extremities: Warm, Perfused, Other (Right shoulder is TTP anteriorly and laterally, no obvious deformity, ROM restricted by pain, no crepitus) Result Diagram: 08/11/1852108/11/18521 Assessment and Plan Problems: (1) SBO (small bowel obstruction) Status: Acute Assessment & Plan: 08/11/18: Patient has been admitted to start conservative management with NG tube decompression, bowel rest, IV fluids. She feels better this morning. Passed flatus earlier this morning. No appetite. Not much out of NG tube. Will get water-soluble SBFT today. Don't think surgical exploration will be necessary as CT findings mild/equivocal but may require surgical exploration depending on SBFT findings or failure to improve with conservative management. I have explained this plan to the patient in great detail and she seems to understand and she seems agreeable with this plan. 08/12/18: Doing better from GI standpoint, no GI symptoms currently. Will continue regular diet, get right shoulder x-ray. Pt and her instructed not to take any outside medication without letting us know so we can avoid medication interactions or giving too much tylenol because we didn't know she was also taking percocet which also contains tylenol. I also instructed her to stay away from the opioid as this could possibly have contributed to the symptoms that led to her current admission since all opioids exacerbate constipation (she has chronic constipation on top of this) and slow the entire GI tract down. She and her indicate their understanding of this and agree to let us know if they wish to take a home medication and I also recommended that we try NSAIDS to treat her right shoulder pain and will try to avoid narcotics to prevent recurrence of her GI symptoms. I also recommended a colonoscopy in the near future for screening since she has never had a colonoscopy (no known FH CRC). If she continues to do well today, will d/c to home later today. (2) Right shoulder pain Status: Chronic Assessment & Plan: Will start ibuprofen, continue ice. Will get x-ray of shoulder today. If x-ray unremarkable and pain persists for the next week without improvement then MRI of her shoulder. Condition Stable. Time Spent: < 30 min Exam Sepsis Risk: No Definite Risk Problem Qualifiers (1) Right shoulder pain: Chronicity: acute Qualified Codes: M25.511 - Pain in right shoulder INES GOMEZ MD August 12, 2018 07:46
[2018-08-12] MEDS: ENOXAPARIN 40 MG/0.4ML SYR SC SCH (08:45)
--- NOTE | 2018-08-12 08:48 | RADIOLOGY IMAGING REPORT ---
FACILITY: [facility] PATIENT NAME: Malick Jefferson : 1965 MR: [id number] V: [id number] EXAM DATE: ORDERING PHYSICIAN: INES GOMEZ [place]CHN[place] [facility] [place] : 1965 Visit/Account:[id number] Date of Sevice: 08/12/2018 SHOULDER MIN 2 VIEWS RIGHT COMPARISONS: None. ADDITIONAL PERTINENT HISTORY: Right shoulder pain and swelling FINDINGS: Osseous structures: Negative. Joint spaces: Negative. Surrounding soft tissues: Negative. IMPRESSION: Normal views of the right shoulder. Report Dictated By: Marcelino Molina MD at 08/12/2018 8:44 AM Report E-Signed By: Marcelino Molina MD at 08/12/2018 8:44 AM WSN:[email or web address]
[2018-08-12] MEDS ORDERED: PANTOPRAZOLE SOD 40 MG TABEC PO SCH (09:00)
[2018-08-12 11:26] VITALS: BP 119/89
--- NOTE | 2018-08-12 12:42 | Short(Outpt) Discharge Summary ---
Discharge Summary Reason for Hosp/Final Diag: (1) SBO (small bowel obstruction) Status: Acute Hospital Course & Plan: 08/11/18: Patient has been admitted to start conservative management with NG tube decompression, bowel rest, IV fluids. She feels better this morning. Passed flatus earlier this morning. No appetite. Not much out of NG tube. Will get water-soluble SBFT today. Don't think surgical exploration will be necessary as CT findings mild/equivocal but may require surgical exploration depending on SBFT findings or failure to improve with conservative management. I have explained this plan to the patient in great detail and she seems to understand and she seems agreeable with this plan. 08/12/18: Doing better from GI standpoint, no GI symptoms currently. Will continue regular diet, get right shoulder x-ray. Pt and her instructed not to take any outside medication without letting us know so we can avoid medi cation interactions or giving too much tylenol because we didn't know she was also taking percocet which also contains tylenol. I also instructed her to stay away from the opioid as this could possibly have contributed to the symptoms that led to her current admission since all opioids exacerbate constipation (she has chronic constipation on top of this) and slow the entire GI tract down. She and her indicate their understanding of this and agree to let us know if they wish to take a home medication and I also recommended that we try NSAIDS to treat her right shoulder pain and will try to avoid narcotics to prevent recurre nce of her GI symptoms. I also recommended a colonoscopy in the near future for screening since she has never had a colonoscopy (no known FH CRC). If she continues to do well today, will d/c to home later today. 08/12/18 (afternoon): Doing well. No abdominal pain, tolerating diet. Continued right shoulder pain but normal x-ray. Will d/c to home and I will see her back in my office to discuss colonoscopy and if her shoulder is still painful will get an MRI. She will continue her bowel regimen and I recommended adding Citrucel fiber to see if this helps. She should avoid opioids due to the constipating effect of these. She seems agreeable with this plan. (2) Right shoulder pain Status: Chronic Hospital Course & Plan: Will start ibuprofen, continue ice. Will get x-ray of shoulder today. If x-ray unremarkable and pain persists for the next week without improvement then MRI of her shoulder.' Normal shoulder x-ray. Departure Discharge to: Home, Self Care Discharge Instructions Home Meds Reported Medications [place]-3 Fatty Acids/Fish Oil (OMEGA 3 FISH OIL SOFTGEL) 1 Each Capsule.dr, 1 CAP PO QDAY 08/11/18 Cholecalciferol (Vitamin D3) (VITAMIN D3) 1,000 Unit Tablet, 1 TAB PO QDAY, TAB 08/11/18 Multivitamin (MULTIVITAMINS) 1 Each Capsule, 1 EACH PO QDAY, CAPSULE 08/11/18 Fluticasone Prop 50 Mcg Ns (FLONASE 50 MCG NS) 16 Gm [place].susp, 1 SPRAY NS BID PRN for ALLERGY SYMPTOMS, BOT 08/11/18 Fexofenadine Hcl/Pseudoephedr (NAVNEET-D 24 HOUR TABLET) 1 Each Tabsr, 1 TAB PO QDAY 07/19/18 Estradiol (ESTRADIOL) 1 Mg Tablet, 1 MG PO 07/19/18 Metformin Hcl (METFORMIN HCL) 500 Mg Tablet, 1 TAB PO BID, TAB 07/19/18 Buspirone Hcl (BUSPIRONE HCL) 15 Mg Tablet, 15 MG PO BID, #10 TAB 07/19/18 Discontinued Scripts Hydrocodone Bit/Acetaminophen (HYDROCODON-ACETAMINOPHEN 5-325) 1 Each Tablet, 1 EACH PO Q4-6H PRN for PAIN, #12 TAKE ONE TABLET BY MOUTH EVERY 4-6 HOURS NEEDED FOR PAIN Prov:NOÉ FRAZIER DO 07/19/18 Ondansetron 4 Mg Odt (ONDANSETRON 4 MG ODT) 4 Mg Tab.rapdis, 4 MG PO Q6H PRN for NAUSEA/VOMITING, #10 TAB Prov:NOÉ FRAZIER DO 07/19/18 Metronidazole (FLAGYL) 500 Mg Tablet, 500 MG PO BID for infection, #14 TAB Prov:NOÉ FRAZIER DO 07/19/18 Ciprofloxacin Hcl 500 Mg Tab (CIPRO 500 MG TAB) 500 Mg Tablet, 500 MG PO BID for infection, #14 Prov:NOÉ FRAZIER DO 07/19/18 Follow up Referrals: General Surgery - 08/22/18 @ Surgery, General with INES GOMEZ MD You have a follow up appointment scheduled with Dr. Gomez on 08/22/18, at 9:30am. Diet: Regular Activity: As Tolerated Special Instructions: Continue your bowel regimen (miralax, etc). Consider adding citrucel fiber to your regimen. You can take ibuprofen or aleve for your shoulder pain but be aware that these medications can cause stomach ulcers so consider taking ranitidine twice every day while you're taking the ibuprofen, aleve, or other NSAIDS (non-steroidal anti-inflammatory drugs) on a regular basis. You can also use ice or heat or alternate between the two to help your improve your shoulder pain/inflammation. We will discuss your shoulder pain at your follow up appointment and if it is still present I'll order an MRI. We'll also discuss a colonoscopy at that appointment as well. Problem Qualifiers (1) Right shoulder pain: Chronicity: acute Qualified Codes: M25.511 - Pain in right shoulder INES GOMEZ MD August 12, 2018 12:42
== END 2018-08-12 13:55 | disposition home or self-care (01) | DRG 390 ==
LOC: ER 17:17 → MED 19:30
PROVIDERS: ADMIT Surgery; ATTEND Surgery
PROC: 0D9670Z Drainage of Stomach with Drainage Device, Via Natural or Artificial Opening (ICD-10-PCS; principal; 2018-08-10)
DX: K56.600 Partial intestinal obstruction, unspecified as to cause (principal); K59.09 Other constipation; M25.511 Pain in right shoulder; Z90.710 Acquired absence of both cervix and uterus
CPT/HCPCS: 36415; 71045; 74018; 74177; 74250; 81001; 82040; 82150; 82247; 82310; 82374; 82435; 82565; 82947; 83690; 84075; 84132; 84155; 84295; 84450; 84460; 84520; 85025; 85651; 86140; 96374; 96375; 96376; 99285; C9113; J0131; J1170; J1650; J2405; J3010; J7030; Q9967

== ENCOUNTER → 2018-08-22 | Outpatient (CLI) | payer OTHER ==
[~2018-08-22] MED LIST changes: +CHOL10005 PO; +FLUT16SP19 NS; +LIDO700A19 TD; +MULT1CAP59 PO; +OMEG-36 PO
--- NOTE | 2018-08-22 11:44 | EKG ---
FACILITY: [facility] - [place] PATIENT NAME: MICHAEL PORTILLO : [id number] MR: [id number] V: [id number] EXAM DATE: ORDERING PHYSICIAN: INES GMOEZ TECHNOLOGIST: LINUS Test Reason : PRE-OP Blood Pressure : / mmHG Vent. Rate : 064 BPM Atrial Rate : 064 BPM P-R Int : 128 ms QRS Dur : 074 ms QT Int : 446 ms P-R-T Axes : 024 023 014 degrees QTc Int : 460 ms Normal sinus rhythm Normal ECG No previous ECGs available Referred By: Confirmed By:
== END ==
LOC: RESP 10:45
PROVIDERS: ATTEND Surgery
DX: Z02.9 Encounter for administrative examinations, unspecified (principal)

== ENCOUNTER → 2018-09-05 | Outpatient (CLI) | payer OTHER ==
[~2018-09-05] MED LIST changes: +BARIUM SULFATE 176 GM BTL PO ONE; +BARIUM SULFATE 340 GM POWD ONE
--- NOTE | 2018-09-05 16:31 | RADIOLOGY IMAGING REPORT ---
FACILITY: [facility] - [place] PATIENT NAME: Malick Jefferson : 1965 MR: [id number] V: [id number] EXAM DATE: ORDERING PHYSICIAN: INES GOMEZ TECHNOLOGIST: Location: [facility] - [place] Patient: Malick Jefferson : 1965 Visit/Account:[id number] Date of Sevice: 09/05/2018 Exam type: ESOPHAGRAM History: dysphagia Comparison: None. Findings: Double contrast esophagram was performed with thick and thin barium and air contrast. There is a mil d irregularity seen along the anterior wall of the cervical esophagus best appreciated on image 24 of series 9 moderate gastroesophageal reflux was observed. No significant narrowing the distal esophag us identified. The dose area product was 167.91 micro-Landa per meter squared IMPRESSION: 1. There is moderate gastroesophageal reflux although no significant narrowing of the distal esophag us There is a mild mucosal irregularity seen along the anterior wall the cervical esophagus best appreci ated on image 24 of series 9. This could represent an area of inflammation although endoscopy may be helpful for further delineation Report Dictated By: Juliet Hyatt MD at 09/05/2018 4:22 PM Report E-Signed By: Juliet Hyatt MD at 09/05/2018 4:27 PM WSN:[email or web address]
== END ==
LOC: RAD 00:35
PROVIDERS: ATTEND Surgery
DX: K21.9 Gastro-esophageal reflux disease without esophagitis (principal)
CPT/HCPCS: 74220

== ENCOUNTER 2018-09-21 01:08 | Day surgery (SDC) | payer OTHER ==
--- NOTE | 2018-09-14 12:10 | NUR ---
attempted to call pt.for preop interview. no answer left vm.
--- NOTE | 2018-09-14 15:52 | NUR ---
attempted to return call. no answer left vm.
[~2018-09-21] VITALS: Ht 172.7 cm; Wt 70.8 kg
[~2018-09-21 01:08] MED LIST changes: -BARIUM SULFATE 176 GM BTL PO ONE; -BARIUM SULFATE 340 GM POWD ONE
[2018-09-21] MEDS ORDERED: LIDOCAINE MPF 1% 5 ML VIAL ONE (10:12)
[2018-09-21] MEDS ORDERED: PROPOFOL EMUL(*) 10MG/ML 20 ML 40 ML ONE (10:12)
[2018-09-21 11:09] VITALS: BP 124/83
[2018-09-21] MEDS ORDERED: NORMOSOL R SOLN(*) 1000 ML BAG 1,000 ML IV PRN (11:20)
[2018-09-21] MEDS ORDERED: LIDOCAINE/SOD BICARB 8.4% SYR ID ONE (11:20)
[2018-09-21 12:21] VITALS: BP_SYST 97; BP_DIAS 62; BP_DIAS 74
--- NOTE | 2018-09-21 12:35 | Short(Outpt) Discharge Summary ---
Discharge Summary Reason for Hosp/Final Diag: (1) Dysphagia Status: Chronic Hospital Course & Plan: EGD with dilation completed without problems. (2) Colon cancer screening Status: Chronic Hospital Course & Plan: Colonoscopy completed without problems, normal. Departure Discharge to: Home, Self Care Discharge Instructions Home Meds Reported Medications [place]-3 Fatty Acids/Fish Oil (OMEGA 3 FISH OIL SOFTGEL) 1 Each Capsule.dr, 1 CAP PO QDAY 08/11/18 Cholecalciferol (Vitamin D3) (VITAMIN D3) 1,000 Unit Tablet, 1 TAB PO QDAY, TAB 08/11/18 Multivitamin (MULTIVITAMINS) 1 Each Capsule, 1 EACH PO QDAY, CAPSULE 08/11/18 Fexofenadine Hcl/Pseudoephedr (NAVNETE-D 24 HOUR TABLET) 1 Each Tabsr, 1 TAB PO QDAY 07/19/18 Estradiol (ESTRADIOL) 1 Mg Tablet, 1 MG PO 07/19/18 Metformin Hcl (METFORMIN HCL) 500 Mg Tablet, 1 TAB PO BID, TAB 07/19/18 Buspirone Hcl (BUSPIRONE HCL) 15 Mg Tablet, 15 MG PO BID, #10 TAB 07/19/18 Discontinued Reported Medications Fluticasone Prop 50 Mcg Ns (FLONASE 50 MCG NS) 16 Gm [place].susp, 1 SPRAY NS BID PRN for ALLERGY SYMPTOMS, BOT 08/11/18 Discontinued Scripts Lidocaine (Lidocaine) 5 % Adh..patch, 1 PATCH TD QDAY, #14 PATCH 0 Refills Prov:INES GOMEZ MD 08/22/18 Diet: Regular Activity: As Tolerated Special Instructions: Your upper endoscopy and colonoscopy were completed without problems and your prep was excellent (Good Job!!). I didn't find any polyps, cancer, inflammation, or any other abnormalities. I looked in the very end of your small intestines as well and I didn't see any inflammation in this area either. Your esophagus, stomach, and duodenum looked normal on upper endoscopy, I did dilate your esophagus. The 1st dilator that I used was too big for the muscle in your upper esophagus so I switched to a smaller, but still good sized dilator, and it passed without problems. I recommend that you cut your food into bites no bigger then your thumb nail and chew thoroughly. My office will call you in the next several days to schedule a follow up appointment to see me back in my office and discuss the results of all your tests (hopefully the shoulder MRI is done by then) and determine if you need to see orthopedic surgery or if anything else needs to be done depending on how you feel at that time. Problem Qualifiers (1) Dysphagia: Dysphagia type: esophageal phase Qualified Codes: R13.10 - Dysphagia, unspecified INES GOMEZ MD Sep 21, 2018 12:35
[2018-09-21 12:41] VITALS: BP 101/59
[2018-09-21 13:00] VITALS: BP 111/75
[2018-09-21 13:18] VITALS: BP 108/85
[2018-09-21 13:20] VITALS: BP 121/89
== END 2018-09-21 13:50 | disposition home or self-care (01) ==
LOC: OR 01:08
PROVIDERS: ATTEND Surgery
DX: Z12.11 Encounter for screening for malignant neoplasm of colon (principal); E11.9 Type 2 diabetes mellitus without complications; K56.609 Unspecified intestinal obstruction, unspecified as to partial versus complete obstruction
CPT/HCPCS: 00813; 36416; 43248; 45378; 82948; C1769; J2001; J2704

== ENCOUNTER → 2018-09-27 | Outpatient (CLI) | payer OTHER ==
--- NOTE | 2018-09-27 13:52 | RADIOLOGY IMAGING REPORT ---
[place] [facility] [place]IENT NAME: Malick Jefferson : 1965 MR: [id number] V: [id number] EXAM DATE: ORDERING PHYSICIAN: INES GOMEZ TECHNOLOGIST: Location: [facility] - [place] Patient: Malick Jefferson : 1965 Visit/Account:[id number] Date of Sevice: 09/27/2018 MRI right shoulder Indication: Right shoulder pain. Decreased shoulder mobility Comparison: None available. Technique: Multiplanar multisequence MR images were obtained through the right shoulder. Findings: Rotator cuff: There is mild intrasubstance tearing distal infraspinatus as well as mild undersurface tearing of dis rossy posterior fibers. There is moderate tendinopathy distal supraspinous also seen is focal mild unde rsurface tearing of distal posterior supraspinatus fibers. No full-thickness tear. The subscapularis is intact as well as the teres minor.. Biceps tendon: The intra-articular portion of the tendon is intact and unremarkable. Extra-articular portion of the long head of biceps tendon appears unremarkable within the bicipital g roove. AC joint and acromion: Mild AC joint degenerative changes seen. Slight mild lateral downsloping acromion noted which can pre dispose to impingement. Labrum and capsular ligaments: There is no discrete labral tear identified. Capsular ligaments are intact with no evidence of focal abnormality. Bones and cartilage: Nonspecific areas of cystic change within the superior humeral head likely chronic/degenerative in na ture. No acute osseous abnormality. No focal chondral defect glenohumeral joint cartilage.. Effusion, bursitis: Small amount of fluid seen within the subacromial/subdeltoid bursa. No significant joint effusion. IMPRESSION: 1. Partial tearing distal infraspinatus with mild undersurface tearing of distal posterior fibers. 2. Mild subacromial/subdeltoid bursitis. Report Dictated By: Hakeem Galindo MD at 09/27/2018 1:12 PM Report E-Signed By: Hakeem Galindo MD at 09/27/2018 1:46 PM WSN:[email or web address]
== END ==
LOC: MRI 00:48
PROVIDERS: ATTEND Surgery
DX: M75.51 Bursitis of right shoulder (principal)